=== PATIENT | male | born 1935 | race Caucasian/White ===

== ENCOUNTER 2017-03-19 14:34 | Inpatient (IN) | payer BC ==
[~2017-03-19] VITALS: Ht 165.1 cm; Wt 70.0 kg
[2017-03-19 14:40] VITALS: Ht 165.1 cm; Wt 70.0 kg
[2017-03-19] MEDS ORDERED: CEFEPIME 2GM/50 ML (PMX) 50 ML IVPB STA (15:16)
[2017-03-19] MEDS ORDERED: SODIUM CHLORIDE 0.9% 1L BAG IV* STA (15:16)
--- NOTE | 2017-03-19 16:19 | RADRPT ---
PROCEDURE: XR Chest. CLINICAL INDICATION: Sepsis TECHNIQUE: Chest AP portable COMPARISON: 01/04/2009 FINDINGS: Left-sided dual lead AICD device. The mediastinal structures are unremarkable. There is calcification of the thoracic aorta (consiste nt with atherosclerosis). The heart is normal in size and configuration. The pulmonary vascularity is normal. There are normal lung volumes. There is a RUL patchy consolidation (query pneumonia). The pleural spaces are unremarkable. There are senescent changes of the axial skeleton. IMPRESSION: Calcification of the thoracic aorta (consistent with atherosclerosis). RUL patchy consolidation (query pneumonia) RPTAT: HGDB .Felice Lopez MD, MD Date Time Electronically viewed and signed by .Felice Lopez MD, on 03/19/2017 16:18 .B/
[2017-03-19 16:23] LABS: ADD SCAN DIFF NO
[2017-03-19 16:27] LABS: ABNORMAL IP MESSAGE 1; BASOPHILS % 0.4 % (0.0-2.0); HEMATOCRIT 39.3 % (42.0-52.0); HEMOGLOBIN 13.5 g/dl (14.0-18.0); LYMPHOCYTES # 0.4 10^3/ul (0.8-2.9); LYMPHOCYTES % 5.5 % (15.0-51.0); MEAN CORPUSCULAR HEMOGLOBIN 31.5 pg (29.0-33.0); MEAN CORPUSCULAR HGB CONC 34.4 g/dl (32.0-37.0); MEAN CORPUSCULAR VOLUME 91.6 fl (82.0-101.0); MEAN PLATELET VOLUME 9.4 fl (7.4-10.4); MONOCYTE # 0.5 10^3/ul (0.3-0.9); MONOCYTES % 6.5 % (0.0-11.0); NEUTROPHIL # 6.2 10^3/ul (1.6-7.5); NEUTROPHILS % 87.2 % (39.0-77.0); PLATELET COUNT 164 10^3/UL (140-415); RED BLOOD COUNT 4.29 10^6/ul (4.70-6.10); RED CELL DISTRIBUTION WIDTH 13.1 % (11.5-14.5); WHITE BLOOD COUNT 7.1 10^3/ul (4.8-10.8)
[2017-03-19] MEDS ORDERED: LOSA25TA5 PO (16:29)
[2017-03-19] MEDS ORDERED: PRAV80TA27 PO (16:30)
[2017-03-19] MEDS ORDERED: CARV25TA79 PO (16:30)
[2017-03-19] MEDS ORDERED: ASPI-664 PO (16:31)
[2017-03-19 16:42] LABS: INR 1.17; PT RATIO 1.2
[2017-03-19 16:43] LABS: PARTIAL THROMBOPLASTIN TIME 29.2 Sec (25.0-35.0)
[2017-03-19 16:49] LABS: POTASSIUM 3.7 mmol/L (3.5-5.1)
[2017-03-19 16:51] LABS: ALBUMIN/GLOBULIN RATIO 1.02; BILIRUBIN,INDIRECT 0.4 mg/dl (0-1.1); BILIRUBIN,TOTAL 0.4 mg/dl (0.2-1.3); CREATININE 1.21 mg/dl (0.61-1.24); TOTAL PROTEIN 7.9 g/dl (6.1-8.1)
[2017-03-19 16:52] LABS: CALCIUM 8.8 mg/dl (8.4-10.2)
[2017-03-19 17:01] LABS: TROPONIN-I 0.014 ng/ml (0.00-0.12)
--- NOTE | 2017-03-19 18:23 | CONS ---
DATE OF ADMISSION: 03/19/2017 DATE OF CONSULTATION: 03/19/2017 REFERRING PHYSICIAN: from ER. REASON FOR CONSULTATION: Rule out ST elevation myocardial infarction. CHIEF COMPLAINT: Cough, shortness of breath. HISTORY OF PRESENT ILLNESS: Thank you for referring this patient who is a poor historian, review of the old chart, discussion with ER physician. This is a pleasant 78-year-old gentleman with history of what appeared to be CVA, severe cardiomyopathy, ejection fraction about 20%, status post ICD janis cement, history of what appeared to be possibly cardiac arrest who came to emergency room with above complaint. The patient has been coughing over the past few days. Her primary doctor sent her to [facility] Room where an EKG was done and there was concerned about ST elevation DC. I was dalton d to evaluate the patient emergently. The patient was seen and evaluated. The patient with no ches t pain or pressure, no palpitations only complaint of cough, chest pressure, consistent with possibl e pneumonia. EKG was reviewed, showed which showed Q-waves in anterior lead with ST elevation in V1 , V2 differential diagnosis includes old anterior infarct versus others including such as Brugada sy ndrome. The patient denies any symptoms of cardiac disease. Denies any PND, orthopnea to me. PAST MEDICAL HISTORY: History of cardiomyopathy, review of the old chart in 2008, his ejection frac tion of about 18% to 20%. SOCIAL HISTORY: Does not smoke or drink. FAMILY HISTORY: Denies any coronary artery disease. ALLERGIES: NO REPORTED ALLERGIES. MEDICATIONS: Prior to admission include: 1. Coreg 25 b.i.d. 2. Losartan. 3. Pravastatin. 4. Aspirin. REVIEW OF SYSTEMS: As above mentioned. PHYSICAL EXAMINATION: VITAL SIGNS: Temperature 100, T-max is 101.9, heart rate of 83, blood pressure 101/56, respiration rate of 25, saturating 88% to 94%. HEENT: Normocephalic, atraumatic. No acute distress. CHEST: Status post ICD. PULMONARY: With no wheezes. GASTROINTESTINAL: Soft, nontender. EXTREMITIES: Trivial lower extremity edema. NEUROLOGIC: Awake and alert. PSYCHIATRIC: Appeared to be calm. LABORATORY: WBC of 7.1, hemoglobin 13.5, platelets of 164. Sodium 135, potassium 3.5, BUN of 32, c reatinine 1.2, glucose 139. EKG as above-mentioned. ASSESSMENT AND PLAN: 1. Abnormal EKG, but does not meet the criteria for acute anterior ST elevation myocardial infarcti on. 2. History of cardiomyopathy, history of implantable cardioverter defibrillator. 3. Pneumonia. 4. Hypertension. RECOMMENDATIONS: Antibiotic management as per Internal Medicine. Cefepime was given to patient in the ER. We will order echocardiogram to evaluate for LV function. No indication for emergent card iac catheterization. Dictated By: KOREY FENTON/KAYLA Conf#: [id number] DID#: [id number]
[2017-03-19] MEDS ORDERED: ACETAMINOPHEN 325 MG TAB PO PRN (18:30)
[2017-03-19] MEDS ORDERED: ONDANSETRON 4 MG INJ IV PRN (18:30)
[2017-03-19 20:16] VITALS: TEMP 99.8
--- NOTE | 2017-03-19 21:37 | ERA ---
ER Documentation Chief Complaint Date/Time DATE: 03/19/17 TIME: 21:24 Chief Complaint WEAKNESS AND LOW O2 WITH FEVER HPI 81-year-old male who presents with shortness of breath and fever. He has had a cough for the last week that is been getting worse. He denies any chest pain currently. He has no nausea and has not vomited. Is also had chills and is feeling more tired than usual.. Reviewed the patient's EMR he has a history of low ejection fraction of 20%. ROS All systems reviewed and are negative except as per history of present illness. Medications Home Meds Reported Medications Aspirin* (Aspirin* EC) 81 Mg Tablet.dr, 81 MG PO DAILY, TAB 03/19/17 Pravastatin Sodium* (Pravastatin Sodium*) 80 Mg Tablet, 80 MG PO HS, TAB 03/19/17 Carvedilol* (Carvedilol*) 25 Mg Tablet, 25 MG PO BID, #60 TAB 03/19/17 Losartan Potassium* (Losartan Potassium*) 25 Mg Tablet, 25 MG PO BID, TAB 03/19/17 Allergies Allergies: Coded Allergies: No Known Allergies (Verified Allergy, Unknown, 03/19/17) PMhx/Soc History of Surgery: Yes Hx Neurological Disorder: No Hx Respiratory Disorders: No Hx Cardiac Disorders: Yes Hx Psychiatric Problems: No Hx Miscellaneous Medical Probl: Yes (CAD, HTN) Hx Alcohol Use: Yes (beer, wine) Hx Substance Use: No Hx Tobacco Use: No Smoking Status: Former smoker Physical Exam Vitals Vital Signs Date Time Temp Pulse Resp B/P Pulse Ox O2 Delivery O2 Flow Rate FiO2 03/19/17 20:16 99.8 80 16 102/57 100 Nasal Cannula 2.0 03/19/17 19:00 Nasal Cannula 2 03/19/17 16:31 Nasal Cannula 3.0 03/19/17 15:35 100.0 83 25 101/56 94 Room Air 03/19/17 14:40 101.9 88 22 100/55 88 Physical Exam Const: [] Mild distress Head: Atraumatic Eyes: Normal Conjunctiva ENT: Normal External Ears, Nose and Mouth. Neck: Full range of motion..~ No meningismus. Resp: Mild bilateral lower lobe rales with right upper lung decreased sounds and rales as well., Tachypnea Cardio: Regular rate and rhythm, no murmurs Abd: Soft, non tender, non distended. Normal bowel sounds Skin: No petechiae or rashes Ext: No cyanosis, or edema Neur: Awake and alert and oriented 3, no focal deficits Psych: Normal Mood and Affect Result Diagram: 03/19/17 1523 03/19/17 1523 Results 24 hrs Laboratory Tests Test 03/19/17 15:23 03/19/17 15:35 03/19/17 17:22 03/19/17 19:20 White Blood Count 7.110^3/ul Red Blood Count 4.2910^6/ul Hemoglobin 13.5g/dl Hematocrit 39.3% Mean Corpuscular Volume 91.6fl Mean Corpuscular Hemoglobin 31.5pg Mean Corpuscular Hemoglobin Concent 34.4g/dl Red Cell Distribution Width 13.1% Platelet Count 20808^3/UL Mean Platelet Volume 9.4fl Neutrophils % 87.2% Lymphocytes % 5.5% Monocytes % 6.5% Eosinophils % 0.0% Basophils % 0.4% Nucleated Red Blood Cells % 0.0/100WBC Neutrophils # 6.210^3/ul Lymphocytes # 0.410^3/ul Monocytes # 0.510^3/ul Eosinophils # 0.010^3/ul Basophils # 0.010^3/ul Nucleated Red Blood Cells # 0.010^3/ul Prothrombin Time 15.0Sec Prothrombin Time Ratio 1.2 INR International Normalized Ratio 1.17 Activated Partial Thromboplast Time 29.2Sec Sodium Level 135mmol/L Potassium Level 3.7mmol/L Chloride Level 100mmol/L Carbon Dioxide Level 22mmol/L Anion Gap 17 Blood Urea Nitrogen 32mg/dl Creatinine 1.21mg/dl Glucose Level 139mg/dl Calcium Level 8.8mg/dl Total Bilirubin 0.4mg/dl Direct Bilirubin 0.00mg/dl Indirect Bilirubin 0.4mg/dl Aspartate Amino Transf (AST/SGOT) 44IU/L Alanine Aminotransferase (ALT/SGPT) 28IU/L Alkaline Phosphatase 60IU/L Troponin I 0.014ng/ml Total Protein 7.9g/dl Albumin 4.0g/dl Globulin 3.90g/dl Albumin/Globulin Ratio 1.02 Lactic Acid Level 2.0mmol/L 1.7mmol/L 1.4mmol/L Current Medications Medications (Trade) Dose Ordered Sig/Theo Route PRN Reason Start Time Stop Time Status Last Admin Dose Admin Sodium Chloride 2170 ml 2,170 ml BOLUS OVER 2 HOURS STAT IV* 03/19/17 15:16 03/19/17 15:17 DC 03/19/17 17:12 Cefepime HCl (Maxipime 2gm/50 ml (Pmx)) 50 ml @ 100 mls/hr ONCE STAT IVPB 03/19/17 15:16 03/19/17 15:45 DC 03/19/17 17:12 Ondansetron HCl (Zofran Inj) 4 mg ER BRIDGE PRN IV NAUSEA AND/OR VOMITING 03/19/17 18:30 03/20/17 18:29 Acetaminophen (Tylenol Tab) 650 mg ER BRIDGE PRN PO MILD PAIN/FEVER 03/19/17 18:30 03/20/17 18:29 Procedures/MDM Patient with pneumonia with sepsis as well as ST elevations thought to be Brugada syndrome. Patient was reportedly hypoxic in doctor's office. Had hypoxia 88 originally emergency room responded well to oxygen therapy. Patient' s initial EKG showed ST elevations in lead V1 and V2. He had no chest pain at the time so I called sales and marketing engineer, Dr. Tolentino, who did not think that this was a ST elevation myocardial infarction. If the patient had a gram of cefepime initiated sepsis dose fluid. Over the patient's lower lung crackles increased showing signs of possible fluid overload with poor ejection fraction and only a small portion of the fluid was given. It is not prudent to give more IV fluid regardless of sepsis protocol. Patient was placed on oxygen and had decreased shortness of breath. Dr. valera that did come the emergency room to see the patient and diagnosed him with Brugada syndrome. Going to be admitted to telemetry. I spoke with Dr. Mendenhall who will be admitting. EKG interpretation: Normal sinus rhythm rate of 83, ST elevations in leads V1 and V2 with saddleback deformity consistent with Brugada syndrome. Patient also has large Q waves in these leads. Normal axis the patient. groundwater monitoring technician interpretation: Normal sinus rhythm without arrhythmia Chest x-ray interpretation: Right upper lobe density consistent with infiltrate , engorgement of pulmonary vasculature consistent with CHF, no widened mediastinum, no pneumothorax, no fractures Critical care time 36 minutes: This includes treatment of pneumonia with sepsis and hypoxia in an elderly male, very clear of careful fluid administration patient with poor ejection fraction signs of fluid overload, antibiotics selection, chart review, multiple visits the patient's bedside to reassess status, discussion with sales and marketing engineer and admitting doctor as well as patient. This does not include any billable procedures Departure Diagnosis: Primary Impression: Sepsis due to pneumonia Additional Impression: Brugada syndrome Condition: Serious ESTEFANIA NAVA DO March 19, 2017 21:35
[2017-03-19 21:58] VITALS: PULSE 80
[2017-03-19 22:00] VITALS: BP 119/58; RESP 18
[2017-03-20] VITALS (12 sets, daily range): BP systolic 101–117; BP diastolic 56–65; PULSE 74–106; RESP 16–18
--- NOTE | 2017-03-20 00:28 | QN ---
Documentation Comment H&P dict a/p 1. pulm: fever, recent cough, hypoxemia, likely RUL pna, cont levoflox, patient with pneumonia severity index around 113 (age, BUN, CHF), will plan Rx with levoflox for CAP 2. cards: hx cardiomyopathy with ICD in situ, no current evidence of lfuid overload. hold bp meds in light of borderline BP 3. renal: CKD vs arf, await repeat creat after fluids 4. proph: AJAY Gil MD March 20, 2017 00:28
[2017-03-20] MEDS ORDERED: ACETAMINOPHEN 325 MG TAB PO PRN (00:30)
[2017-03-20] MEDS ORDERED: ONDANSETRON 4 MG INJ IV PRN (00:30)
[2017-03-20] MEDS ORDERED: LEVOFLOXACIN 750MG/D5W (PMX) 150 ML IVPB SCH ×2 (00:30→02:00)
--- NOTE | 2017-03-20 03:13 | HP ---
DATE OF ADMISSION: 03/19/2017 CHIEF COMPLAINT: Cough. HISTORY OF PRESENT ILLNESS: Mr. Grant presents to the emergency room at [facility] with co dedra which he states has been present for the last 3 weeks or so. He states that he was on vacati on on a cruise in [place] last month and since he returned, he has been having coughing. He, however, states that this coughing led to some back pain across the lower back which made it very difficult for him to stand and walk over the weekend, and so he went to see his regular physician this morning and was referred to the emergency room. The patient has not experienced any fevers or chills at [facility]. He does not endorse any dysuria or abdominal pain, pressure, or discomfort. PAST MEDICAL HISTORY: Significant for cardiomyopathy with ICD in situ and prior episodes of syncope . MEDICATIONS: As an outpatient include 1. Coreg. 2. Cozaar 3. Aspirin. 4. Pravastatin. ALLERGIES: NO KNOWN DRUG ALLERGIES. SOCIAL HISTORY: The patient lives at home in [facility] with his and daughter, is independent of a ctivities of daily living, denies tobacco, alcohol, or illicit drug use, does not use a cane or walk er, and is not driving because of poor eyesight. He has no advanced directive. FAMILY HISTORY: Noncontributory. REVIEW OF SYSTEMS: Five systems were reviewed and found not to be revealing. PHYSICAL EXAMINATION: VITAL SIGNS: Blood pressure is 102/57, pulse rate 80, respirations 16, temperature is 99.8, satting 100% on 2 liters nasal cannula. GENERAL: Pleasant elderly man in no acute distress, alert and oriented. HEENT: Normocephalic, atraumatic without evident scleral icterus, perioral cyanosis. Mucous membra nancy are moist. NECK: Soft and supple without masses. No evidence of jugular venous distention or carotid bruits. CHEST: Clear to auscultation and percussion bilaterally. HEART: Regular rate and rhythm, S1-S2, no added sounds. ABDOMEN: Soft, nontender, nondistended without palpable hepatosplenomegaly. EXTREMITIES: Without clubbing, cyanosis, or edema. SKIN: Without rashes. NEUROLOGIC: Grossly intact. LABORATORY STUDIES: Reveal a hemoglobin of 13.5 g/dL, white count of 7100, platelets of 164,000. I NR is 1.17. Sodium 135, potassium 3.7, chloride 100, bicarbonate 22, BUN 32, creatinine 1.21, gluco se 139. Liver function tests are unremarkable. Troponin is 0.014. Lactic acid is 1.4 at last chec k. Chest x-ray reveals a faint right upper lobe infiltrate. ASSESSMENT AND PLAN: 1. Pulmonary: The patient with a fever and hypoxemia likely related to right upper lobe pneumonia. This is relatively mild clinically, and we will plan to treat as community-acquired pneumonia with Levaquin. 2. The patient with hypoxemic respiratory failure. Continue oxygen support as needed. 3. Cardiac: The patient with known cardiomyopathy with ICD in situ. Continue to observe. 4. No current evidence of fluid overload. 5. Hold blood pressure medications as blood pressure is relatively low at this point in time. 6. Renal: The patient with mildly elevated creatinine, unclear if this is chronic or acute. Await repeat creatinine following hydration. 7. Prophylaxis with Lovenox. Dictated By: AJAY JOSEPH MD RER/NTS Conf#: [id number] DID#: [id number]
[2017-03-20] MEDS: ASPIRIN (EC) 81 MG TAB PO SCH (08:22)
[2017-03-20] MEDS: ENOXAPARIN 40 MG/0.4 ML SYG SC SCH (08:24)
[2017-03-20 11:15] LABS: ADD SCAN DIFF NO
[2017-03-20 11:17] LABS: ABNORMAL IP MESSAGE 1; BASOPHILS % 0.2 % (0.0-2.0); EOSINOPHILS % 0.3 % (0.0-7.0); HEMATOCRIT 37.1 % (42.0-52.0); HEMOGLOBIN 12.6 g/dl (14.0-18.0); LYMPHOCYTES # 0.4 10^3/ul (0.8-2.9); LYMPHOCYTES % 7.2 % (15.0-51.0); MEAN CORPUSCULAR HEMOGLOBIN 30.9 pg (29.0-33.0); MEAN CORPUSCULAR VOLUME 90.9 fl (82.0-101.0); MEAN PLATELET VOLUME 9.7 fl (7.4-10.4); MONOCYTE # 0.4 10^3/ul (0.3-0.9); NEUTROPHIL # 5.1 10^3/ul (1.6-7.5); NEUTROPHILS % 85.8 % (39.0-77.0); PLATELET COUNT 142 10^3/UL (140-415); RED BLOOD COUNT 4.08 10^6/ul (4.70-6.10); RED CELL DISTRIBUTION WIDTH 13.2 % (11.5-14.5)
[2017-03-20 11:45] LABS: CREATINE KINASE 211 IU/L (23-200)
[2017-03-20 11:50] LABS: ALBUMIN 3.2 g/dl (3.3-4.9); ALBUMIN/GLOBULIN RATIO 0.91; BILIRUBIN,INDIRECT 0.2 mg/dl (0-1.1); BILIRUBIN,TOTAL 0.2 mg/dl (0.2-1.3); CALCIUM 8.2 mg/dl (8.4-10.2); CHOL/HDL RATIO 3.4 RATIO; CREATININE 0.75 mg/dl (0.61-1.24); MAGNESIUM 2.3 mg/dl (1.7-2.5); POTASSIUM 3.5 mmol/L (3.5-5.1); TOTAL PROTEIN 6.7 g/dl (6.1-8.1)
[2017-03-20 11:59] LABS: TROPONIN-I < 0.012 ng/ml (0.00-0.12)
[2017-03-20 12:17] LABS: THYROID STIMULATING HORMONE 2.65 MIU/L (0.465-4.680)
--- NOTE | 2017-03-20 12:56 | PN ---
Date/Time of Note Date/Time of Note DATE: 03/20/17 TIME: 12:10 Assessment/Plan VTE Prophylaxis VTE Prophylaxis Intervention: LMWH Lines/Catheters IV [facility]from [facility] Saline Lock Urinary Cath still in place: No Assessment/Plan Assessment/Plan 81 yo male with: 1. Probable Right upper lobe pneumonia, likely community-acquired pneumonia. Continue Levaquin CT chest pending today Clinically better and on RA currently. 2. CAD and known ischemic cardiomyopathy with ICD in situ. Last cardio eval in 2008 here at [facility] showed EF 25 to 20% Euvolemic currently Continue ASA and statins Coreg and Losartan held due to BP Repeat 2D echo done today Patient reports he sees Dr Hernandez outpatient 3. Hypertension: Holding Coreg and Cozaar due to relatively low BP. 4. Hyperlipidemia: continue statins 5. MAYURI vs CKD: improved renal function today, monitor renal function. Prophylaxis: DVT ppx with Lovenox and GI ppx with Pepcid Disposition: Tele obs and CT chest pending Subjective 24 Hr Interval Summary Free Text/Dictation Patient doing well No complaints today except still with cough now dry CT chest pending today Afebrile and WBC wnl Exam/Review of Systems Vital Signs Vitals Vital Signs Date Time Temp Pulse Resp B/P Pulse Ox O2 Delivery O2 Flow Rate FiO2 03/20/17 11:49 98.5 81 17 116/65 90 03/19/17 22:00 Room Air 03/19/17 20:16 2.0 Exam Constitutional: alert, oriented, well developed Respiratory: clear to auscultation, normal air movement Cardiovascular: nl pulses, regular rate and rhythm Gastrointestinal: non-tender, soft Musculoskeletal: nl extremities to inspection Extremities: normal pulses, other (no edema, clubbing or cyanosis ) Neurological: CONSTRUCTION AND MAINTENANCE INSPECTOR II-XII intact, nl mental status, nl speech, nl strength Results Result Diagram: 03/20/17 1027 03/20/17 1027 Results 24 hrs Laboratory Tests Test 03/19/17 15:23 03/19/17 15:35 03/19/17 17:22 03/19/17 19:20 White Blood Count 7.1 Red Blood Count 4.29 L Hemoglobin 13.5 L Hematocrit 39.3 L Mean Corpuscular Volume 91.6 Mean Corpuscular Hemoglobin 31.5 Mean Corpuscular Hemoglobin Concent 34.4 Red Cell Distribution Width 13.1 Platelet Count 164 Mean Platelet Volume 9.4 Neutrophils % 87.2 H Lymphocytes % 5.5 L Monocytes % 6.5 Eosinophils % 0.0 Basophils % 0.4 Nucleated Red Blood Cells % 0.0 Neutrophils # 6.2 Lymphocytes # 0.4 L Monocytes # 0.5 Eosinophils # 0.0 Basophils # 0.0 Nucleated Red Blood Cells # 0.0 Prothrombin Time 15.0 H Prothrombin Time Ratio 1.2 INR International Normalized Ratio 1.17 Activated Partial Thromboplast Time 29.2 Sodium Level 135 Potassium Level 3.7 Chloride Level 100 Carbon Dioxide Level 22 Anion Gap 17 H Blood Urea Nitrogen 32 H Creatinine 1.21 Glucose Level 139 Calcium Level 8.8 Total Bilirubin 0.4 Direct Bilirubin 0.00 Indirect Bilirubin 0.4 Aspartate Amino Transf (AST/SGOT) 44 Alanine Aminotransferase (ALT/SGPT) 28 Alkaline Phosphatase 60 Troponin I 0.014 Total Protein 7.9 Albumin 4.0 Globulin 3.90 H Albumin/Globulin Ratio 1.02 Lactic Acid Level 2.0 1.7 1.4 Test 03/20/17 10:27 White Blood Count 6.0 Red Blood Count 4.08 L Hemoglobin 12.6 L Hematocrit 37.1 L Mean Corpuscular Volume 90.9 Mean Corpuscular Hemoglobin 30.9 Mean Corpuscular Hemoglobin Concent 34.0 Red Cell Distribution Width 13.2 Platelet Count 142 Mean Platelet Volume 9.7 Neutrophils % 85.8 H Lymphocytes % 7.2 L Monocytes % 6.0 Eosinophils % 0.3 Basophils % 0.2 Nucleated Red Blood Cells % 0.0 Neutrophils # 5.1 Lymphocytes # 0.4 L Monocytes # 0.4 Eosinophils # 0.0 Basophils # 0.0 Nucleated Red Blood Cells # 0.0 Sodium Level 135 Potassium Level 3.5 Chloride Level 106 Carbon Dioxide Level 25 Anion Gap 8 # Blood Urea Nitrogen 22 H Creatinine 0.75 Glucose Level 122 Calcium Level 8.2 L Magnesium Level 2.3 Total Bilirubin 0.2 Direct Bilirubin 0.00 Indirect Bilirubin 0.2 Aspartate Amino Transf (AST/SGOT) 62 H Alanine Aminotransferase (ALT/SGPT) 43 Alkaline Phosphatase 60 Creatine Kinase 211 H Creatine Kinase Index 0.8 Creatinine Kinase MB (Mass) 1.70 Troponin I < 0.012 B-Type Natriuretic Peptide 653 H Total Protein 6.7 # Albumin 3.2 L Globulin 3.50 H Albumin/Globulin Ratio 0.91 Triglycerides Level 72 Cholesterol Level 102 LDL Cholesterol, Calculated 58 HDL Cholesterol 30 L Cholesterol/HDL Ratio 3.4 Thyroid Stimulating Hormone (TSH) Pending Free Thyroxine 1.21 Medications Medications Current Medications Aspirin (Halfprin) 81 mg DAILY PO Last administered on 03/20/17 08:22; Admin Dose 81 MG; Start 03/20/17 at 09:00 Acetaminophen (Tylenol Tab) 650 mg Q4H PRN PO PAIN AND OR ELEVATED TEMP; Start 03/20/17 at 00:30 Ondansetron HCl (Zofran Inj) 4 mg Q4H PRN IV NAUSEA AND/OR VOMITING; Start at 00:30 Hydralazine HCl (Apresoline) 25 mg Q6 PRN PO sbp>160; Start 03/20/17 at 00:30 Enoxaparin Sodium 40 mg 40 mg DAILY SC Last administered on 03/20/17 08:24; Admin Dose 40 MG; Start 03/20/17 at 09:00 Levofloxacin/ Dextrose (Levaquin 750 Mg/ D5W 150 ml (Pmx)) 150 ml @ 100 mls/hr Q48H IVPB Last administered on 03/20/17 02:00; Admin Dose 100 MLS/HR; Start at 02:00 Atorvastatin Calcium (Lipitor) 20 mg DAILY@21 PO ; Start 03/20/17 at 21:00 THONY RAY March 20, 2017 12:20
--- NOTE | 2017-03-20 13:25 | RADRPT ---
Echocardiogram Report Patient Name: RAPHAEL CARRERA Gender: Male Date: 1935 Study Date: 20-Mar-2017 Aircraft Seat Upholsterer: Pb Deleon [facility] Location: [id number] Ref. Physician: KOREY TOLENTINO Quality: Adequate Procedures: Transthoracic echocardiogram with complete 2D, M-Mode, and doppler examination. Indications: Congestive Heart Failure. 2D/M Mode Doppler Measurement Value Normal Ranges Measurement Value Normal Ranges LVIDd 2D 6.1 3.5 - 5.6 cm AV Peak Wilder 1.4 m/sec LVIDs 2D 5.3 2.1 - 4.1 cm AV Peak PG 8.2 mmHg LVPWd 2D 1.1 0.6 - 1.1 cm AI Peak PG 23.5 mmHg IVSd 2D 1.0 0.6 - 1.1 cm AI Peak Wilder 2.4 m/sec AoR Diam 2D 3.2 2.0 - 3.7 cm AI PHT 449.7 msec EDV 2D 186.8 cm3 LVOT Peak Wilder 1.1 m/sec ESV 2D 150.3 cm3 LVOT Peak PG 4.5 mmHg LA Dimen 2D 3.5 2.3 - 4.0 cm MV E Peak Wilder 0.6 m/sec MV A Peak Wilder 0.9 m/sec MV E/A 0.7 MV Decel Time 169 msec MV Decel [place] 4 MV E/A 0.7 Findings Left Ventricle: Mild enlargement of left ventricle cavity. Severe left ventricular systolic dysfunction. Ejection fraction is visually estimated at 20 %. Tissue Doppler/Mitral Doppler indices are consistent with impaired relaxation (Stage I diastolic dysfunction). These segments of the LV are hypokinetic basal anterior segment, mid anterior segment, apical anterior segment, apical lateral segment, anterolateral mid segment, inferior apex segment, anteroseptum mid segment, apex and apical septum. Right Ventricle: Normal right ventricular size. Normal right ventricular systolic function. Pacemaker right heart. Left Atrium: The left atrium is normal in size. Right Atrium: The right atrium is normal in size. Mitral Valve: Mitral valve leaflets appear mildly thickened. Mild mitral annular calcification. Mild mitral valve regurgitation. Aortic Valve: No hemodynamically significant aortic stenosis by doppler. Aortic cusps appear mildly calcified. Trace aortic valve regurgitation. Tricuspid Valve: Normal appearance of the tricuspid valve. Unable to obtain RVSP due to minimal presence of tricuspid regurgitation. Pulmonic Valve: Normal pulmonic valve appearance. There is mild pulmonic regurgitation. Pericardium: Trivial pericardial effusion. Aorta: Normal aortic root. IVC: Normal size and normal respiratory collapse consistent with normal right atrial pressure. Conclusions 1.Mild enlargement of left ventricle cavity. Severe left ventricular systolic dysfunction. Ejection fraction is visually estimated at 20 %. Tissue Doppler/Mitral Doppler indices are consistent with impaired relaxation (Stage I diastolic dysfunction). These segments of the LV are hypokinetic basal anterior segment, mid anterior segment, apical anterior segment. , apical lateral segment. , anterolateral mid segment. , inferior apex segment, anteroseptum mid segment, apex. and apical septum. 2.Mitral valve leaflets appear mildly thickened. Mild mitral annular calcification. Mild mitral valve regurgitation. 3.No hemodynamically significant aortic stenosis by doppler. Aortic cusps appear mildly calcified. Trace aortic valve regurgitation. 4.Normal appearance of the tricuspid valve. Unable to obtain RVSP due to minimal presence of tricuspid regurgitation. 5.Normal size and normal respiratory collapse consistent with normal right atrial pressure. Electronically Signed By: Korey Tolentino 20-Mar-2017 13:24:51 [id number] Patient Name: RAPHAEL CARRERA Study Date: 20-Mar-2017 [id number]
[2017-03-20 13:32] LABS: CREATINE KINASE 209 IU/L (23-200)
[2017-03-20 13:43] LABS: TROPONIN-I < 0.012 ng/ml (0.00-0.12)
[2017-03-20 14:45] LABS: ADD UMIC YES; URINE BILIRUBIN (Dip) NEGATIVE (NEGATIVE); URINE BLOOD (Dip) 1+ (NEGATIVE); URINE COLOR YELLOW (YELLOW); URINE GLUCOSE (Dip) NEGATIVE (NEGATIVE); URINE KETONES (Dip) NEGATIVE (NEGATIVE); URINE LEUKOCYTE ESTERASE (Dip) NEGATIVE (NEGATIVE); URINE NITRITE (Dip) NEGATIVE (NEGATIVE); URINE TOTAL PROTEIN (Dip) TRACE (NEGATIVE); URINE UROBILINOGEN (Dip) 0.2 E.U./dL (0.1-1.0)
[2017-03-20 16:02] LABS: SQUAMOUS EPITHELIAL CELL,UR RARE
--- NOTE | 2017-03-20 18:59 | PN ---
DATE: 03/20/2017 CARDIOLOGY FOLLOWUP SUBJECTIVE: Discussed with the staff. The patient remains in sinus rhythm. The patient presents t o the emergency room with cough and shortness of breath. MEDICATIONS: Reviewed. PHYSICAL EXAMINATION: VITAL SIGNS: Temperature 98.5, heart rate of 77, blood pressure 116/65, respiration rate of 17, sat urating 92%. HEENT: Normocephalic, atraumatic. Pupils are equal. NECK: Supple, with no JVD. CARDIOVASCULAR: Regular rate and rhythm, systolic murmur. PULMONARY: With mostly right-sided rhonchi. GASTROINTESTINAL: Soft, nontender. EXTREMITIES: Trivial edema. NEUROLOGIC: Awake and alert. PSYCHIATRIC: Calm, pleasant. LABORATORY: WBC of 6, hemoglobin 12.6, platelet 142. Sodium 135, potassium 3.5, BUN of 22, creatin ine 0.75, glucose 122. CK of 209. Troponin less than 0.012. LDL of 58. Echocardiogram was person ally reviewed, which shows severe LV dysfunction and dilated left ventricle. Ejection fraction is a bout 20%. ASSESSMENT AND PLAN: 1. Abnormal EKG consistent with a prior myocardial infarction. 2. Pneumonia, right upper lobe. 3. Severe ischemic cardiomyopathy with history of ICD placement. 4. Hypertension. 5. Dyslipidemia. 6. Renal insufficiency, improved. RECOMMENDATIONS: I will resume patient on Losartan and carvedilol. Start the carvedilol at a lower dose and increase as needed and tolerated. Antibiotic as per internal medicine. Aspirin will be c ontinued. Statin will be continued. Dictated By: KOREY FENTON/KAYLA Conf#: [id number] DID#: [id number]
[2017-03-20] MEDS: ATORVASTATIN 20 MG TAB PO SCH (20:55)
[2017-03-20] MEDS ORDERED: NON-FORMULARY/PATIENT OWN MED (Pravastatin Sodium* 80 MG) PO SCH (21:00)
--- NOTE | 2017-03-20 21:29 | RADRPT ---
PROCEDURE: CT Chest without contrast. CLINICAL INDICATION: Pneumonia and hypoxia. TECHNIQUE: Multiple contiguous helical CT images of the chest were obtained without the administra tion of intravenous contrast. Coronal and sagittal reformatted images were obtained from the source images. CTDIvol (mGy): 11.23; Total Exam DLP (mGy-cm): 448.22. One or more of the following dose reduction techniques were utilized: - Automated exposure control. - Adjustment of the mA and/or kV according to patient size. - Use of iterative reconstruction technique. COMPARISON: Chest x-ray 03/19/2017. CT chest 11/20/2008. FINDINGS: Limited imaging of the lower neck is unremarkable. The heart is enlarged. Calcification of the mid anterolateral portion of the left ventricle is obse rved. Thinning of the wall with mild focal bulging is also present. Imaging findings suggest seque lae of old infarct. Trace pericardial fluid is observed. There is no bulky mediastinal, hilar or a xillary lymphadenopathy. Multiple small mediastinal lymph nodes are present and unchanged. Right a trial pacemaker and right ventricular ICD leads are in place. The thoracic aorta is normal in calib er with atherosclerotic calcification. The pulmonary arteries are not enlarged. Coronary artery ca lcifications are present. A trace right pleural effusion is present. Bilateral emphysematous changes are present and have pro gressed over time. Mild diffuse bronchial dilatation is observed with minimal mild bronchial wall t hickening. Interstitial thickening is seen within the lung bases and may reflect interstitial fibro sis and possible superimposed interstitial edema. Patchy consolidation is seen throughout the right upper lobe which may be a result of pneumonia or asymmetric pulmonary edema. There is a 2.6 x 1.5 cm ovoid hypodense nodule of the left upper lobe along the major fissure. The density of the nodule measures the lobe 10 HU. Loculated fluid within the major fissure is considered. Limited imaging of the upper abdomen demonstrates diverticulosis. The adrenal glands are unremarkab le. Degenerative changes throughout the thoracic spine are present. Chest wall soft tissues are unremar kable. 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 Diffuse emphysematous changes with superimposed interstitial fibrosis within the lung bases. Inters titial edema is also likely present. Patchy consolidation of the right upper lobe which may be a result of pneumonia or asymmetric pulmon patricia edema. Low density nodule of the left upper lobe along the fissure. Loculated fluid within the major fissu re is considered. Recommend follow up and 3-6 months. RPTAT: HLST .Joyce Huff MD, Date Time Electronically viewed and signed by .Joyce Huff MD, on 03/20/2017 21:28 .T/
[2017-03-21] VITALS (11 sets, daily range): BP systolic 100–127; BP diastolic 19–66; PULSE 75–87; RESP 17–19
[2017-03-21] MEDS ORDERED: LEVOFLOXACIN 750MG/D5W (PMX) 150 ML IVPB SCH (02:00)
[2017-03-21 07:35] LABS: ADD SCAN DIFF NO
[2017-03-21 07:42] LABS: ABNORMAL IP MESSAGE 1; BASOPHILS % 0.2 % (0.0-2.0); EOSINOPHILS % 0.6 % (0.0-7.0); HEMOGLOBIN 12.9 g/dl (14.0-18.0); LYMPHOCYTES # 0.5 10^3/ul (0.8-2.9); LYMPHOCYTES % 10.7 % (15.0-51.0); MEAN CORPUSCULAR HEMOGLOBIN 31.1 pg (29.0-33.0); MEAN CORPUSCULAR HGB CONC 33.9 g/dl (32.0-37.0); MEAN CORPUSCULAR VOLUME 91.6 fl (82.0-101.0); MEAN PLATELET VOLUME 9.4 fl (7.4-10.4); MONOCYTE # 0.3 10^3/ul (0.3-0.9); MONOCYTES % 5.5 % (0.0-11.0); NEUTROPHIL # 3.9 10^3/ul (1.6-7.5); NEUTROPHILS % 82.4 % (39.0-77.0); PLATELET COUNT 156 10^3/UL (140-415); RED BLOOD COUNT 4.15 10^6/ul (4.70-6.10); RED CELL DISTRIBUTION WIDTH 13.2 % (11.5-14.5); WHITE BLOOD COUNT 4.7 10^3/ul (4.8-10.8)
[2017-03-21 08:03] LABS: MAGNESIUM 2.1 mg/dl (1.7-2.5); PHOSPHORUS 2.3 mg/dl (2.5-4.9)
[2017-03-21 08:32] LABS: POTASSIUM 3.7 mmol/L (3.5-5.1)
[2017-03-21 08:34] LABS: CREATININE 0.73 mg/dl (0.61-1.24)
[2017-03-21 08:35] LABS: CALCIUM 8.1 mg/dl (8.4-10.2)
[2017-03-21] MEDS: LOSARTAN 25 MG TAB PO SCH (09:25)
[2017-03-21] MEDS: ASPIRIN (EC) 81 MG TAB PO SCH (09:25)
[2017-03-21] MEDS: ENOXAPARIN 40 MG/0.4 ML SYG SC SCH (09:26)
[2017-03-21] MEDS ORDERED: FUROSEMIDE 20 MG INJ IV ONE (10:00)
--- NOTE | 2017-03-21 10:58 | PN ---
DATE: 03/21/2017 CARDIOLOGY FOLLOWUP SUBJECTIVE: Discussed with the staff. ____The patient remains in sinus rhythm. No chest pain or p ressure. Still complains of cough ____. MEDICATIONS: Reviewed. PHYSICAL EXAMINATION: VITAL SIGNS: Temperature 98.4, heart rate of 75, blood pressure 120/66, respiratory rate of 19. HEENT: Normocephalic, atraumatic. Pupils are equal. CARDIOVASCULAR: Regular rate and rhythm, systolic murmur. PULMONARY: With diffuse rhonchi, mostly on the right side. GASTROINTESTINAL: Soft, nontender. EXTREMITIES: With trivial edema. NEUROLOGIC: Awake, responds appropriately. PSYCHIATRIC: Appears to be calm. LABORATORY: WBC of 4.7, hemoglobin 12.9, platelet 156. Mag is 2.1. ASSESSMENT AND PLAN: 1. Pneumonia. 2. Chronic obstructive pulmonary disease. 3. Severe cardiomyopathy. 4. Coronary artery disease. 5. Renal insufficiency. RECOMMENDATIONS: We will continue with the current cardiac care. Antibiotic as per internal medici ne. Pulmonary care as per internal medicine. Dictated By: KOREY FENTON/KAYLA Conf#: [id number] DID#: [id number]
--- NOTE | 2017-03-21 14:37 | PN ---
Date/Time of Note Date/Time of Note DATE: 03/21/17 TIME: 14:15 Assessment/Plan VTE Prophylaxis VTE Prophylaxis Intervention: SCD's Lines/Catheters IV C[facility] Type (from [facility] Saline Lock Urinary Cath still in place: No Assessment/Plan Assessment/Plan 81 yo male with: 1. Probable Right upper lobe pneumonia, likely community-acquired pneumonia. But also likely pulmonary edema Continue Levaquin and started Lasix for also notes AGUIRRE. 2. CAD and known ischemic cardiomyopathy with ICD in situ. Last cardio eval in 2008 here at [facility] showed EF 25 to 20%. Confirmed severe cardiomyopathy. Pulmonary edema noted on CT and CXR, started Lasix for now and back on Coreg and Losartan at low dose. Continue ASA and statins Patient reports he sees Dr Hernandez as outpatient 3. Hypertension: monitor BP on low dose Coreg and Cozaar. 4. Hyperlipidemia: continue statins 5. MAYURI vs CKD: resolved as of today and starting diuresis. Prophylaxis: DVT ppx with Lovenox and GI ppx with Pepcid Disposition: Change to inpatient and diuresis Subjective 24 Hr Interval Summary Free Text/Dictation Patient doing OK but with AGUIRRE on/off 2L NC Diuresis and resuming cardiac meds Exam/Review of Systems Vital Signs Vitals Vital Signs Date Time Temp Pulse Resp B/P Pulse Ox O2 Delivery O2 Flow Rate FiO2 03/21/17 12:00 78 03/21/17 11:41 98.2 17 111/58 92 03/21/17 08:15 Nasal Cannula 2.0 Intake and Output 03/20/17 03/20/17 03/21/17 15:00 23:00 07:00 Intake Total 800 ml Output Total 800 ml Balance 0 ml Exam Constitutional: alert, oriented, well developed Respiratory: diminished breath sounds (at bases bilaterally ), normal air movement Cardiovascular: nl pulses, regular rate and rhythm Gastrointestinal: non-tender, soft Musculoskeletal: nl extremities to inspection Extremities: normal pulses Neurological: PROPOSAL CONSULTANT II-XII intact, nl mental status, nl speech, nl strength Results Result Diagram: 03/21/17 0703/21/17 07 Results 24 hrs Laboratory Tests Test 03/21/17 07:05 White Blood Count 4.7 #L Red Blood Count 4.15 L Hemoglobin 12.9 L Hematocrit 38.0 L Mean Corpuscular Volume 91.6 Mean Corpuscular Hemoglobin 31.1 Mean Corpuscular Hemoglobin Concent 33.9 Red Cell Distribution Width 13.2 Platelet Count 156 Mean Platelet Volume 9.4 Neutrophils % 82.4 H Lymphocytes % 10.7 L Monocytes % 5.5 Eosinophils % 0.6 Basophils % 0.2 Nucleated Red Blood Cells % 0.0 Neutrophils # 3.9 Lymphocytes # 0.5 L Monocytes # 0.3 Eosinophils # 0.0 Basophils # 0.0 Nucleated Red Blood Cells # 0.0 Sodium Level 136 Potassium Level 3.7 Chloride Level 100 Carbon Dioxide Level 25 Anion Gap 15 # Blood Urea Nitrogen 17 Creatinine 0.73 Glucose Level 91 Calcium Level 8.1 L Phosphorus Level 2.3 L Magnesium Level 2.1 Medications Medications Current Medications Aspirin (Halfprin) 81 mg DAILY PO Last administered on 03/21/17 09:25; Admin Dose 81 MG; Start 03/20/17 at 09:00 Acetaminophen (Tylenol Tab) 650 mg Q4H PRN PO PAIN AND OR ELEVATED TEMP Last administered on 03/20/17 20:55; Admin Dose 650 MG; Start 03/20/17 at 00:30 Ondansetron HCl (Zofran Inj) 4 mg Q4H PRN IV NAUSEA AND/OR VOMITING; Start at 00:30 Hydralazine HCl (Apresoline) 25 mg Q6 PRN PO sbp>160; Start 03/20/17 at 00:30 Enoxaparin Sodium (Lovenox) 40 mg DAILY SC Last administered on 03/21/17 09:26 ; Admin Dose 40 MG; Start 03/20/17 at 09:00 Atorvastatin Calcium 20 mg 20 mg DAILY@21 PO Last administered on 03/20/17 20: 55; Admin Dose 20 MG; Start 03/20/17 at 21:00 Levofloxacin/ Dextrose (Levaquin 750 Mg/ D5W 150 ml (Pmx)) 150 ml @ 100 mls/hr Q24H IVPB Last administered on 03/21/17 02:16; Admin Dose 100 MLS/HR; Start at 02:00 Carvedilol (Coreg) 3.125 mg BID PO Last administered on 03/21/17 09:25; Admin Dose 3.125 MG; Start 03/20/17 at 14:00 Losartan Potassium (Cozaar) 25 mg DAILY PO Last administered on 03/21/17t 09:25 ; Admin Dose 25 MG; Start 03/21/17 at 09:00 THONY RAY March 21, 2017 14:27
[2017-03-21] MEDS: FUROSEMIDE 20 MG INJ IV SCH (17:10)
[2017-03-21] MEDS: ATORVASTATIN 20 MG TAB PO SCH (20:48)
[2017-03-21] MEDS: GUAIFENESIN/CODEINE 5ML CUP PO PRN (22:15)
[2017-03-22] VITALS (13 sets, daily range): BP systolic 92–122; BP diastolic 52–66; PULSE 73–85; RESP 16–18
[2017-03-22] MEDS: LEVOFLOXACIN 750 MG TABLET PO SCH (05:55)
[2017-03-22] MEDS: FUROSEMIDE 20 MG INJ IV SCH (05:55)
[2017-03-22] MEDS: GUAIFENESIN/CODEINE 5ML CUP PO PRN ×3 (05:58→20:27)
[2017-03-22 07:40] LABS: ALBUMIN 3.2 g/dl (3.3-4.9); ALBUMIN/GLOBULIN RATIO 0.88; BILIRUBIN,INDIRECT 0.3 mg/dl (0-1.1); BILIRUBIN,TOTAL 0.3 mg/dl (0.2-1.3); CALCIUM 8.1 mg/dl (8.4-10.2); CREATININE 0.8 mg/dl (0.61-1.24); POTASSIUM 3.2 mmol/L (3.5-5.1); TOTAL PROTEIN 6.8 g/dl (6.1-8.1)
[2017-03-22] MEDS ORDERED: POTASSIUM CHLORIDE (SR) 20 MEQ TAB PO STA ×2 (08:02→09:39)
[2017-03-22] MEDS: SPIRONOLACTONE 25 MG TAB PO SCH (09:42)
[2017-03-22] MEDS: ASPIRIN (EC) 81 MG TAB PO SCH (09:42)
[2017-03-22] MEDS: LOSARTAN 25 MG TAB PO SCH (09:43)
[2017-03-22] MEDS: ENOXAPARIN 40 MG/0.4 ML SYG SC SCH (09:46)
--- NOTE | 2017-03-22 10:14 | PN ---
DATE: 03/22/2017 CARDIOLOGY FOLLOWUP Discussed with the staff. Rhythm strip was reviewed, remains in sinus rhythm. No chest pressure. His cough has improved. Shortness of breath has improved. MEDICATIONS: Reviewed. PHYSICAL EXAMINATION: VITAL SIGNS: Temperature 98.6, heart rate of 76, blood pressure 122/66, respiratory rate 18, satura ting 94%. HEENT: Normocephalic, atraumatic. Pupils are equal. CARDIOVASCULAR: Regular rate and rhythm. PULMONARY: No wheezes. GASTROINTESTINAL: Soft, nontender. EXTREMITIES: No significant lower extremity edema. NEUROLOGIC: Awake, alert. PSYCHIATRIC: Appeared to be calm. LABORATORY: Sodium 133, potassium 3.2, BUN of 14, creatinine 0.8, glucose 102. ProBNP of 1060. ASSESSMENT AND PLAN: 1. Pneumonia. 2. Congestive heart failure. 3. Severe cardiomyopathy. 4. Coronary artery disease. 5. ____ 6. Hypertension. 7. Hyperkalemia. RECOMMENDATIONS: I will change the Lasix to once a day only. Will add ____ as well. Losartan will be continued. Coreg will be continued to be increased as tolerated and ____ will be continued. Ant ibiotic as per internal medicine. Dictated By: KOREY LEE MD AV/KAYLA Conf#: [id number] DID#: [id number] CC: THONY RAY MD;*End*
--- NOTE | 2017-03-22 13:30 | PN ---
Date/Time of Note Date/Time of Note DATE: 03/22/17 TIME: 13:22 Assessment/Plan VTE Prophylaxis VTE Prophylaxis Intervention: SCD's Lines/Catheters IV Catheter Type (from Nrs): Saline Lock Urinary Cath still in place: No Assessment/Plan Assessment/Plan 81 yo male with: 1. Probable Right upper lobe pneumonia, likely community-acquired pneumonia. But also withpulmonary edema Continue Levaquin for total 5 days rx Now on Lasix and Aldactone Checking ABG and may need temporarily home O2 on discharge. 2. CAD and known ischemic cardiomyopathy with ICD in situ. Last cardio eval in 2008 here at [facility] showed EF 25 to 20%. Confirmed severe cardiomyopathy. Pulmonary edema noted on CT and CXR, Continue Lasix, Aldactone and Coreg and Losartan at low dose. Continue ASA and statins Patient reports he sees Dr Hernandez as outpatient 3. Hypertension: monitor BP on low dose Coreg and Cozaar and also diuretics 4. Hyperlipidemia: continue statins 5. MAYURI vs CKD: renal function stable on diuresis. Replete K today Prophylaxis: DVT ppx with Lovenox and GI ppx with Pepcid Disposition: Diuresis, may need home O2 at discharge Subjective 24 Hr Interval Summary Free Text/Dictation Patient doing Ok but definitely with AGUIRRE May need Home O2 at d/d home which is planned for tomorrow 03/23 so far Exam/Review of Systems Vital Signs Vitals Vital Signs Date Time Temp Pulse Resp B/P Pulse Ox O2 Delivery O2 Flow Rate FiO2 03/22/17 12:30 80 03/22/17 11:25 98.3 18 107/58 94 03/22/17 08:00 Nasal Cannula 2.0 Intake and Output 03/21/17 03/21/17 03/22/17 15:00 23:00 07:00 Intake Total 1000 ml 400 ml Output Total 600 ml Balance 400 ml 400 ml Exam Constitutional: alert, oriented, well developed Respiratory: diminished breath sounds (mildly lower lobes ), normal air movement Cardiovascular: nl pulses, regular rate and rhythm Gastrointestinal: non-tender, soft Musculoskeletal: nl extremities to inspection Extremities: normal pulses, other (no edema, clubbing or cyanosis ) Neurological: PUBLIC RELATIONS ACCOUNT SUPERVISOR II-XII intact, nl mental status, nl speech, nl strength Results Result Diagram: 03/21/17 0705 03/22/17 0635 Results 24 hrs Laboratory Tests Test 03/22/17 06:35 Sodium Level 133 L Potassium Level 3.2 L Chloride Level 100 Carbon Dioxide Level 26 Anion Gap 10 # Blood Urea Nitrogen 14 Creatinine 0.80 Glucose Level 102 Calcium Level 8.1 L Magnesium Level 2.0 Total Bilirubin 0.3 Direct Bilirubin 0.00 Indirect Bilirubin 0.3 Aspartate Amino Transf (AST/SGOT) 95 #H Alanine Aminotransferase (ALT/SGPT) 79 H Alkaline Phosphatase 117 # B-Type Natriuretic Peptide 1060 H Total Protein 6.8 Albumin 3.2 L Globulin 3.60 H Albumin/Globulin Ratio 0.88 Medications Medications Current Medications Aspirin (Halfprin) 81 mg DAILY PO Last administered on 03/22/17 09:42; Admin Dose 81 MG; Start 03/20/17 at 09:00 Acetaminophen (Tylenol Tab) 650 mg Q4H PRN PO PAIN AND OR ELEVATED TEMP Last administered on 03/20/17 20:55; Admin Dose 650 MG; Start 03/20/17 at 00:30 Ondansetron HCl (Zofran Inj) 4 mg Q4H PRN IV NAUSEA AND/OR VOMITING; Start at 00:30 Hydralazine HCl (Apresoline) 25 mg Q6 PRN PO sbp>160; Start 03/20/17 at 00:30 Enoxaparin Sodium (Lovenox) 40 mg DAILY SC Last administered on 03/22/17 09:46 ; Admin Dose 40 MG; Start 03/20/17 at 09:00 Atorvastatin Calcium (Lipitor) 20 mg DAILY@21 PO Last administered on 20:48; Admin Dose 20 MG; Start 03/20/17 at 21:00 Carvedilol (Coreg) 3.125 mg BID PO Last administered on 03/22/17 09:43; Admin Dose 3.125 MG; Start 03/20/17 at 14:00 Losartan Potassium (Cozaar) 25 mg DAILY PO Last administered on 03/22/17 09:43 ; Admin Dose 25 MG; Start 03/21/17 at 09:00 Levofloxacin (Levaquin) 750 mg DAILY@06 PO Last administered on 03/22/17 05:55 ; Admin Dose 750 MG; Start 03/22/17 at 06:00 Guaifenesin/ Codeine Phosphate (Robitussin Ac Liquid Cup) 10 ml Q6H PRN PO Cough Last administered on 03/22/17 13:16; Admin Dose 10 ML; Start 03/21/17 at 21:30 Spironolactone (Aldactone) 25 mg DAILY PO Last administered on 03/22/17 09:42 ; Admin Dose 25 MG; Start 03/22/17 at 09:00 Furosemide (Lasix) 20 mg DAILY PO ; Start 03/23/17 at 09:00 THONY RAY March 22, 2017 13:30
[2017-03-22 14:25] LABS: AADO2 Arterial 49.3 mmHg (7.0-24.0); Allen Test ACCEPTAB; Arterial Base Excess 1.7 mmol/L (-3.0-3); Arterial COHb 0 % (0.0-3.0); Arterial Fraction of Oxyhgb 92.9 % (93.0-99.0); Arterial HCO3 23.8 mmol/L (22.0-26.0); Arterial MetHb 0.2 % (0.0-1.5); Arterial Total Hemglobin 14.2 g/dl (12.0-18.0); MODE ROOM AIR
[2017-03-22] MEDS: ATORVASTATIN 20 MG TAB PO SCH (20:32)
[2017-03-23] VITALS (8 sets, daily range): BP systolic 104–119; BP diastolic 61–66; PULSE 78–99; RESP 16–18
[2017-03-23] MEDS: LEVOFLOXACIN 750 MG TABLET PO SCH (05:18)
[2017-03-23 08:10] LABS: ALBUMIN 2.7 g/dl (3.3-4.9)
[2017-03-23 08:13] LABS: ALBUMIN/GLOBULIN RATIO 0.84; BILIRUBIN,INDIRECT 0.2 mg/dl (0-1.1); BILIRUBIN,TOTAL 0.2 mg/dl (0.2-1.3); CREATININE 0.78 mg/dl (0.61-1.24); TOTAL PROTEIN 5.9 g/dl (6.1-8.1)
[2017-03-23 08:14] LABS: CALCIUM 8.1 mg/dl (8.4-10.2); MAGNESIUM 2.1 mg/dl (1.7-2.5)
[2017-03-23] MEDS ORDERED: FUROSEMIDE 20 MG TAB PO SCH (09:00)
[2017-03-23] MEDS ORDERED: FUROSEMIDE 20 MG INJ IV SCH (09:00)
[2017-03-23] MEDS: ASPIRIN (EC) 81 MG TAB PO SCH (09:14)
[2017-03-23] MEDS: SPIRONOLACTONE 25 MG TAB PO SCH (09:15)
[2017-03-23] MEDS: LOSARTAN 25 MG TAB PO SCH (09:15)
[2017-03-23] MEDS: ENOXAPARIN 40 MG/0.4 ML SYG SC SCH (09:21)
--- NOTE | 2017-03-23 10:19 | PN ---
Date/Time of Note Date/Time of Note DATE: 03/23/17 TIME: 10:16 Assessment/Plan VTE Prophylaxis VTE Prophylaxis Intervention: SCD's Lines/Catheters IV Catheter Type (from Nrsg): Saline Lock Urinary Cath still in place: No Assessment/Plan Assessment/Plan 81 yo male with: 1. Probable Right upper lobe pneumonia, likely community-acquired pneumonia. But also with pulmonary edema Continue Levaquin for 3 more days Continue Lasix and Aldactone Patient did desatured to 84% on RA with ambulation, Home O2 ordered 2L NC 2. CAD and known ischemic cardiomyopathy with ICD in situ. Last cardio eval in 2008 here at [facility] showed EF 25 to 20%. Confirmed severe cardiomyopathy. Pulmonary edema noted on CT and CXR, Continue Lasix, Aldactone and Coreg and Losartan at low dose. Continue ASA and statins Patient reports he sees Dr Hernandez as outpatient 3. Hypertension: monitor BP on low dose Coreg and Cozaar and also diuretics 4. Hyperlipidemia: continue statins 5. MAYURI: resolved, renal function stable on diuresis. K stable Prophylaxis: DVT ppx with Lovenox and GI ppx with Pepcid Disposition:D/c home with home O2 today with PCP follow up in 1 week and Cardiology follow up in 2 weeks. Subjective 24 Hr Interval Summary Free Text/Dictation Patient doing Ok at rest on RA but desat to 84% on RA with ambulation CXR pending and will plan for discharge on Home O2 Follow up with Cardiology in 2 weeks Exam/Review of Systems Vital Signs Vitals Vital Signs Date Time Temp Pulse Resp B/P Pulse Ox O2 Delivery O2 Flow Rate FiO2 03/23/17 09:00 84 Room Air 03/23/17 08:38 79 03/23/17 07:24 98.1 16 104/65 03/22/17 20:00 2.0 Intake and Output 03/22/17 03/22/17 03/23/17 15:00 23:00 07:00 Intake Total 1020 ml 800 ml Balance 1020 ml 800 ml Exam Constitutional: alert, oriented, well developed Respiratory: diminished breath sounds (bases much better ), normal air movement Cardiovascular: nl pulses, regular rate and rhythm Gastrointestinal: non-tender, soft Musculoskeletal: nl extremities to inspection, other (no edema, clubbing or cyanosis ) Extremities: normal pulses Neurological: EDUCATIONAL ASSISTANT II-XII intact, nl mental status, nl speech, nl strength Results Result Diagram: 03/21/17 0705 03/23/17 0705 Results 24 hrs Laboratory Tests Test 03/22/17 12:07 03/23/17 07:05 Blood Gas Specimen Source Blood arterial Arterial Blood Date Drawn 03/22/2017 2:17:02 PM Arterial Blood pH (Temp corrected) 7.509 H Arterial Blood pCO2 (Temp correct) 30.6 L Arterial Blood pO2 (Temp corrected) 63.8 L Arterial Blood HCO3 23.8 Arterial Blood Base Excess 1.7 Arterial Blood Oxygen Saturation 93.1 L Yassine Test ACCEPTAB Arterial Blood Gas Puncture Site Left Radial Arterial Blood Carboxyhemoglobin 0 Arterial Blood Methemoglobin 0.2 Blood Gas A-a O2 Differential 49.3 H Oxyhemoglobin Percent 92.9 L Total Hemoglobin 14.2 Blood Gas Temperature 37.0 Blood Gas Modality ROOM AIR FiO2 21.0 Blood Gas Notified Whom M.D. Blood Gas Notified Time 03/22/2017 2:25:14 PM Sodium Level 136 Potassium Level 4.0 Chloride Level 99 Carbon Dioxide Level 26 Anion Gap 15 Blood Urea Nitrogen 16 Creatinine 0.78 Glucose Level 88 Calcium Level 8.1 L Magnesium Level 2.1 Total Bilirubin 0.2 Direct Bilirubin 0.00 Indirect Bilirubin 0.2 Aspartate Amino Transf (AST/SGOT) 62 H Alanine Aminotransferase (ALT/SGPT) 65 Alkaline Phosphatase 124 H B-Type Natriuretic Peptide 799 H Total Protein 5.9 L Albumin 2.7 L Globulin 3.20 Albumin/Globulin Ratio 0.84 Medications Medications Current Medications Aspirin (Halfprin) 81 mg DAILY PO Last administered on 03/23/17 09:14; Admin Dose 81 MG; Start 03/20/17 at 09:00 Acetaminophen (Tylenol Tab) 650 mg Q4H PRN PO PAIN AND OR ELEVATED TEMP Last administered on 03/20/17 20:55; Admin Dose 650 MG; Start 03/20/17 at 00:30 Ondansetron HCl (Zofran Inj) 4 mg Q4H PRN IV NAUSEA AND/OR VOMITING; Start at 00:30 Hydralazine HCl (Apresoline) 25 mg Q6 PRN PO sbp>160; Start 03/20/17 at 00:30 Enoxaparin Sodium (Lovenox) 40 mg DAILY SC Last administered on 03/23/17 09:21 ; Admin Dose 40 MG; Start 03/20/17 at 09:00 Atorvastatin Calcium (Lipitor) 20 mg DAILY@21 PO Last administered on 20:32; Admin Dose 20 MG; Start 03/20/17 at 21:00 Carvedilol (Coreg) 3.125 mg BID PO Last administered on 03/23/17 09:16; Admin Dose 3.125 MG; Start 03/20/17 at 14:00 Losartan Potassium (Cozaar) 25 mg DAILY PO Last administered on 03/23/17 09:15 ; Admin Dose 25 MG; Start 03/21/17 at 09:00 Levofloxacin (Levaquin) 750 mg DAILY@06 PO Last administered on 03/23/17 05:18 ; Admin Dose 750 MG; Start 03/22/17 at 06:00 Guaifenesin/ Codeine Phosphate (Robitussin Ac Liquid Cup) 10 ml Q6H PRN PO Cough Last administered on 03/22/17 20:27; Admin Dose 10 ML; Start 03/21/17 at 21:30 Spironolactone (Aldactone) 25 mg DAILY PO Last administered on 03/23/17 09:15 ; Admin Dose 25 MG; Start 03/22/17 at 09:00 Furosemide (Lasix) 20 mg DAILY PO Last administered on 03/23/17 09:16; Admin Dose 20 MG; Start 03/23/17 at 09:00 THONY RAY March 23, 2017 10:19
--- NOTE | 2017-03-23 10:42 | PDOCDIS ---
Discharge Instructions CONDITION Patient Condition: Stable HOME CARE INSTRUCTIONS: Diet Instructions: Low Fat /Cholesterol ACTIVITY: Activity Restrictions: Slowly Increase Activity FOLLOW UP/APPOINTMENTS Appointments Home O2 2L NC Follow up with PCP in 1 week Follow up with Cardiology in 2 weeks THONY RAY March 23, 2017 10:42
[2017-03-23] MEDS ORDERED: SPIR25TA PO (10:45)
[2017-03-23] MEDS ORDERED: CARV3.1260 PO (10:45)
[2017-03-23] MEDS ORDERED: LOSA25TA5 PO (10:45)
[2017-03-23] MEDS ORDERED: LAS20 PO (10:45)
[2017-03-23] MEDS ORDERED: LEVO750T25 PO (10:45)
--- NOTE | 2017-03-23 12:38 | RADRPT ---
PROCEDURE: XR Chest. CLINICAL INDICATION: Shortness of breath. TECHNIQUE: Chest x-ray, single view. COMPARISON: 03/19/2017. FINDINGS: The cardiac silhouette is magnified and unchanged in size and configuration. Pacemaker leads termina te within the expected locations of the right atrium and right ventricle. Aortic arch atheroscleroti c calcification is observed. A focal interstitial pattern is seen within the right upper lung. Haz y patchy airspace disease has decreased. Low lung volumes are present. Osseous structures appear d emineralized. Degenerative changes of the spine are present. IMPRESSION: Low lung volumes with diminished patchy opacification within the right upper lobe. Prominent interst itial markings remain within the right upper lung. RPTAT: HLST .Joyce Huff MD, MD Date Time Electronically viewed and signed by .Joyce Huff MD, on 03/23/2017 12:38 .T/
--- NOTE | 2017-03-23 16:19 | PN ---
DATE: 03/23/2017 CARDIOLOGY FOLLOWUP SUBJECTIVE: Discussed with Dr. Ray. patient with no chest pain or pressure. In sinus rhythm. B reathing better. MEDICATIONS: Reviewed. PHYSICAL EXAMINATION: VITAL SIGNS: Temperature 98, heart rate of 99, blood pressure 104/61, respirations 18, saturating 9 5%. HEENT: Normocephalic, atraumatic. CARDIOVASCULAR: Regular rate and rhythm. GASTROINTESTINAL: Soft. NEUROLOGIC: Awake and alert. LABORATORY: Sodium 133, potassium 4, BUN of 16, creatinine 0.78, glucose of 88. ProBNP of 799. ASSESSMENT AND PLAN: 1. Congestive heart failure, appears to be under control. 2. Severe ischemic cardiomyopathy ____. 3. Pneumonia. RECOMMENDATIONS: We will continue with the current cardiac care. Outpatient followup with ____ cardiology. Antibiotic as per internal medicine. Dictated By: KOREY LEE MD AV/KAYLA Conf#: [id number] DID#: [id number] CC: THONY RAY MD;*EndCC*
--- NOTE | 2017-03-26 12:00 | PQ ---
Date/Time of Note Date/Time of Note DATE: 03/26/17 TIME: 11:56 Physician Query Documentation Clarification Dear , A review of the medical record found a need for documentation clarification. progress note -CAD and known ischemic cardiomyopathy with ICD in situ. Last cardio eval in 2008 here at [facility] showed EF 25 to 20%. Confirmed severe cardiomyopathy. Pulmonary edema noted on CT and CXR, Continue Lasix, Aldactone and Coreg and Losartan at low dose. Cardiac consult : "congestive heart failure" BNp = 1060 / 790 Please clarify a diagnosis being treated. To facilitate accurate and complete coding, please radha ( x ) the suspected diagnosis that apply: ( ) Acute Systolic (Reduced EF) Heart Failure ( ICD10 I50.21 ) ( ) Acute Diastolic (Preserved EF) Heart Failure ( ICD10 I50.31 ) ( )Acute Combined Systolic & Diastolic Heart Failure ( ICD10 I50.41 ) ( ) Chronic Systolic (Reduced EF) Heart Failure ( ICD10 I50.22 ) ( ) Chronic Diastolic (Preserved EF) Heart Failure ( ICD10 I50.32 ) ( ) Chronic Combined Systolic & Diastolic Heart Failure ( ICD10 I50.42 ) ( ) Acute on Chronic Systolic (Reduced EF) Heart Failure ( ICD10 I50.23 ) ( )Acute on Chronic Diastolic (Preserved EF) Heart Failure ( ICD10 I50.33 ) ( ) Acute on Chronic Combined Systolic & Diastolic Heart Failure ( ICD10 I50.43 ) ( ) Others Please provide your response by clicking edit document, making your choice ( x ), click ok/save and finally click sign. You may also document your response on your progress notes. Thank you for your time. Chicho Trevino RN, BSN, CCS, CCDS Clinical Litigation Support Analyst Health Information Management, CDI and Coding Services [phone] Room # 1525 - [address]~ [id number] CHICHO TREVINO March 26, 2017 12:00
== END 2017-03-23 15:10 | disposition home or self-care (01) | DRG 193 ==
LOC: E/R 14:34 → INTOOBSV 18:10 → MS4 18:10 → OBSVTOIN 03-21 14:44
PROVIDERS: ADMIT Legal Medicine; ATTEND Legal Medicine
DX: J18.9 Pneumonia, unspecified organism (principal); J96.01 Acute respiratory failure with hypoxia; N17.9 Acute kidney failure, unspecified; I50.22 Chronic systolic (congestive) heart failure; E78.5 Hyperlipidemia, unspecified; I25.5 Ischemic cardiomyopathy; I11.0 Hypertensive heart disease with heart failure
CPT/HCPCS: 36415; 36600; 71010; 71250; 80048; 80053; 80061; 81001; 82550; 82553; 82803; 83605; 83735; 83880; 84100; 84439; 84443; 84484; 85025; 85610; 85730; 87040; 93005; 93306; 96374; G0378; J1940; J0692; J1650; J1956; J7030